=== PATIENT | male | born 1940 | race Caucasian/White ===

== ENCOUNTER 2017-07-21 11:06 | Day surgery (SDC) | payer MEDICARE, SELFPAY | END 2017-07-21 17:20 | disposition home or self-care (01) | PROVIDERS: Family Provider Internal Medicine Adolescent Medicine; Visit Provider Orthopaedic Surgery | DX: S82.855A Nondisplaced trimalleolar fracture of left lower leg, initial encounter for closed fracture (principal); W19.XXXA Unspecified fall, initial encounter; E11.9 Type 2 diabetes mellitus without complications; N39.0 Urinary tract infection, site not specified | CPT/HCPCS: 27822; 73600; 73610; 76001; 81001; 82962; 87086; C1713; C1776; J0330; J2405 ==

== ENCOUNTER → 2017-08-04 | Outpatient (CLI) | payer MEDICARE, SELFPAY | PROVIDERS: Family Provider Nurse Practitioner Family; Visit Provider Orthopaedic Surgery | DX: Z09 Encounter for follow-up examination after completed treatment for conditions other than malignant neoplasm (principal); S82.62XA Displaced fracture of lateral malleolus of left fibula, initial encounter for closed fracture | CPT/HCPCS: 73610 ==

== ENCOUNTER → 2017-09-04 12:48 | Outpatient (CLI) | payer MEDICARE, SELFPAY ==
--- NOTE | 2017-09-04 12:55 | XR_ITS ---
XR ankle LT min 3V Ordering Physician: Valentin Kulkarni MD Patient Age: 76 years: Male HISTORY: ITS.REASON: postoperative ORIF left ankle; dos 07/21/17 TECHNIQUE: 3 view left ankle COMPARISON :Previous left ankle 08/04/2017 FINDINGS: Status post ORIF distal fibular and medial malleolus fracture as previously described. There remains good alignment of the fracture fragments. Progressive healing.. The oblique view shows at fixation one of the fixation screws securing the medial malleolus passes through the lateral cortex of the tibia associated with some dystrophic calcification towards interosseous region between tibia and fibula . Ankle mortise appears intact and does not appear widened. Cast is been removed with today's study.. . Upper normal density at the dome of talus noted. IMPRESSION: Good alignment status post ORIF left ankle fracture Report
== END ==
PROVIDERS: PCP Internal Medicine Adolescent Medicine; Visit Provider Orthopaedic Surgery
DX: Z48.89 Encounter for other specified surgical aftercare (principal); S82.852D Displaced trimalleolar fracture of left lower leg, subsequent encounter for closed fracture with routine healing
CPT/HCPCS: 73610

== ENCOUNTER → 2018-03-08 16:02 | Outpatient (CLI) | payer MEDICARE, SELFPAY | PROVIDERS: PCP Internal Medicine Adolescent Medicine; Visit Provider Nurse Practitioner Family | DX: R00.1 Bradycardia, unspecified (principal) | CPT/HCPCS: 93225; 93226 ==

== ENCOUNTER 2020-11-20 09:22 | Emergency (ER) | payer MEDICARE, SELFPAY ==
[2020-11-20] VITALS (12 sets, daily range): BP systolic 189–223; BP diastolic 104–118; PULSE 97–105; RESP 18–41; TEMP 36.7; O2SAT 71–100; BMI 26.6
--- NOTE | 2020-11-20 09:23 | HMH.EDSOB ---
ED Disposition Clinical Impression: Hypertensive urgency, Shock liver, Hyperkalemia Sepsis Qualifiers: Severe sepsis acute organ dysfunction type: acute renal failure Acute renal failure type: unspecified Severe sepsis shock status: without septic shock Acute renal failure Qualifiers: Acute renal failure type: unspecified Qualified Code(s): N17.9 - Acute kidney failure, unspecified Respiratory failure Qualifiers: Chronicity: acute Respiratory failure complication: hypoxia Qualified Code(s): J96.01 - Acute respiratory failure with hypoxia Heart failure Qualifiers: Heart failure type: unspecified Heart failure chronicity: acute Qualified Code(s): I50.9 - Heart failure, unspecified Clinical Impression: (Ruled Out): Acute respiratory disease Disposition: Xfer Short-Term Hosp Condition on Discharge: Serious Instructions: DI for Altered Mental Status Time of Disposition: 11:56 - Critical Care Critical Care Time: Yes Attestation: On , the high probability of a clinically significant, sudden or life threatening deterioration of the following system(s) required my full and direct attention, intervention and personal management. The time I documented below is in addition to time spent performing reported procedures but includes the following listed in this critical care notation. Total Critical Care Time: 45 Vital system(s) involved:: Metabolic Failure, Respiratory Failure, Renal Failure My critical care processes included: Assessment & monitoring of V/S, Initial and Re-exams, Data Review/Interpretation, Coordinating Care, Medication Orders and management Medical Decision Making - Medical Records Medical records reviewed: Yes: I reviewed the patient's medical records. - Bahman Inquiry Pt receiving controlled substance: No Vital Signs: 11/20/20 09:22 11/20/20 09:45 11/20/20 09:46 Temperature 98.0 F Temperature Source Rectal Pulse Rate 98 H 98 H Pulse Rate [Left Radial] 97 H Respiratory Rate 41 H 30 H 34 H Blood Pressure 202/107 H 198/104 H Blood Pressure [Right Arm] 189/114 H Blood Pressure Mean [Right Arm] 139 Blood Pressure Source Blood Pressure Source [Right Arm] Automatic Cuff Blood Pressure Position Blood Pressure Position [Right Arm] Sitting 02 Sat by Pulse Oximetry 71 L 100 100 Oxygen Delivery Method Room Air Nasal Cannula BiPAP Oxygen Flow Rate (LPM) 4 30 11/20/20 10:00 11/20/20 10:17 11/20/20 10:23 Temperature Temperature Source Pulse Rate 99 H 105 H 99 H Pulse Rate [Left Radial] Respiratory Rate 33 H 35 H Blood Pressure 212/110 H 212/118 H 212/110 H Blood Pressure [Right Arm] Blood Pressure Mean [Right Arm] Blood Pressure Source Automatic Cuff Blood Pressure Source [Right Arm] Blood Pressure Position Sitting Blood Pressure Position [Right Arm] 02 Sat by Pulse Oximetry 100 100 100 Oxygen Delivery Method BiPAP Oxygen Flow Rate (LPM) 30 11/20/20 10:47 Temperature Temperature Source Pulse Rate 100 H Pulse Rate [Left Radial] Respiratory Rate 28 H Blood Pressure 223/115 H Blood Pressure [Right Arm] Blood Pressure Mean [Right Arm] Blood Pressure Source Blood Pressure Source [Right Arm] Blood Pressure Position Blood Pressure Position [Right Arm] 02 Sat by Pulse Oximetry 100 Oxygen Delivery Method BiPAP Oxygen Flow Rate (LPM) 30 - Lab Data Lab Results 11/20/20 09:15: WBC 11.0 H, RBC 4.44 L, Hgb 13.2 L, Hct 43.2, MCV 97.3 H, MCH 29.7, MCHC 30.5 L, RDW 14.8, Plt Count 247, MPV 8.9, Neut % (Auto) 87.8 H, Lymph % (Auto) 7.4 L, [place] % (Auto) 4.4, Eos % (Auto) 0.1, Baso % (Auto) 0.4, Neut # (Auto) 9.6 H, Lymph # (Auto) 0.8, [place] # (Auto) 0.5, Eos # (Auto) 0.0, Baso # (Auto) 0.0, Total Counted 100, Neutrophils % (Manual) 90 H, Lymphocytes % (Manual) 9 L, Monocytes % (Manual) 1 L, Platelet Estimate Normal, RBC Morphology Normal 11/20/20 09:15: PT 16.2 H, INR 1.41 H, APTT 28.2 11/20/20 09:15: Sodium 140, Potassium 6.6 H*, Chloride
--- NOTE | 2020-11-20 09:30 | XR_ITS ---
PROCEDURE: XR CHEST PORTABLE CLINICAL HISTORY: hypoxia COMPARISON: CR CXR CHEST(2 VIEWS-NOT PORTABLE) from 07/18/2017 FINDINGS: This is a slightly poor inspiratory effort. There is mild generalized cardiomegaly with left ventricular prominence. Mild calcification of the aortic arch the lung briscoe are clear of infiltrate and there is no pleural fluid. No acute bony abnormalities. IMPRESSION: Mild generalized cardiomegaly, no acute cardiopulmonary disease seen Dictated by: Dr. Ren Langston MD 11/20/2020 10:29 Dr. Ren Langston MD in [facility] 11/20/2020 10:29
--- NOTE | 2020-11-20 09:45 | PC.NURSE ---
lab called to draw lactic and cultures
--- NOTE | 2020-11-20 09:45 | PC.NURSE ---
Lab and RT at bedside
[2020-11-20 09:53] LABS: Basophils % 0.4 % (0.1-2.0); Eosinophils % 0.1 % (0.1-12.0); Hematocrit 43.2 % (42.0-52.0); Hemoglobin 13.2 g/dL (14.1-18.0); Lymphocytes # 0.8 K/mm3 (0.7-4.5); Lymphocytes % 7.4 % (10-50); Mean Corpuscular HGB Conc 30.5 g/dL (31.8-35.4); Mean Corpuscular Hemoglobin 29.7 pg (27.0-31.2); Mean Corpuscular Volume 97.3 fl (80-94); Mean Platelet Volume 8.9 fl (7.4-10.4); Monocytes # 0.5 K/mm3 (0.1-1.0); Monocytes % 4.4 % (1.7-9.3); Neutrophils # 9.6 K/mm3 (1.8-7.8); Neutrophils % 87.8 % (37.0-80.0); Platelet Count 247 K/mm3 (142-424); Red Blood Count 4.44 M/mm3 (4.60-6.20); Red Cell Distribution Width 14.8 % (11.5-17.5)
[2020-11-20 09:54] LABS: Chloride 112 mmol/L (98-107); Sodium 140 mmol/L (136-145)
[2020-11-20 09:56] LABS: MANUAL DIFFERENTIAL MANUAL DIFFERENTIAL (MANUAL DIFF)
[2020-11-20 09:57] LABS: Albumin Level 3.9 g/dl (3.5-5.0); Albumin/Globulin Ratio 1.1 (1.1-1.8); Alkaline Phosphatase 108 U/L (38-126); Bilirubin,Total 2.3 mg/dl (0.2-1.3); Blood Urea Nitrogen 71 mg/dl (9-20); Estimated Glomerular Filt Rate 6 ml/min (>60); GFR (African American) 7 ML/MIN (>60); Globulin 3.4 g/dL (1.3-3.2); Total Protein,Serum 7.3 g/dl (6.3-8.2)
[2020-11-20 09:58] LABS: Calcium 9.4 mg/dl (8.4-10.2); Glucose 138 mg/dl (74-100)
[2020-11-20 09:59] LABS: Anion Gap 29.6 mEq/L (5-15)
[2020-11-20 10:02] LABS: Carbon Dioxide 5 mmol/L (22.0-30.0); Potassium 6.6 mmoL/L (3.5-5.1)
[2020-11-20 10:03] LABS: Activated Partial Thrombo Time 28.2 seconds (22.8-30.6); Alanine Aminotransferase 593 U/L (12-78); INR 1.41 (0.9-1.1); Prothrombin Time 16.2 seconds (10.1-12.5)
--- NOTE | 2020-11-20 10:03 | PC.NURSE ---
DR MATAMOROS NOTIFIED OF CRITICAL LABS
[2020-11-20 10:04] LABS: Aspartate Amino Transferase 587 U/L (17-59)
[2020-11-20 10:06] LABS: Lymphocytes % 9 % (10-50); Monocytes % 1 % (2-9); Neutrophils % 90 % (42-76); Platelet Estimate Normal; RBC Morphology Normal; Total Cells Counted 100
--- NOTE | 2020-11-20 10:06 | PC.NURSE ---
Pt clothing removed and bathed in bed. Clothing placed in trash due to the material disintegration while on pt with dried vomit. Pieces of couch cushion found t/o pt clothing and within body parts. Animal hair and body fluids cleaned from pt body with soap and water. Warm blanket placed on pt.
--- NOTE | 2020-11-20 10:13 | PC.NURSE ---
vijay trop called and notified
[2020-11-20 10:22] LABS: Adenovirus,PCR Not Detected (NotDetected); Bordetella Pertussis Not Detected (NotDetected); Chlamydophila Pneumoniae, PCR Not Detected (NotDetected); Coronavirus 19, PCR Not Detected (NotDetected); Coronavirus 229E Not Detected (NotDetected); Coronavirus NL63 Not Detected (NotDetected); Coronavirus OC43 Not Detected (NotDetected); Coronovirus HKU1,PCR Not Detected (NotDetected); Human Metapneumovirus Not Detected (NotDetected); Influenza A, PCR Not Detected (NotDetected); Influenza AH1, 2009 Not Detected (NotDetected); Influenza AH1, PCR Not Detected (NotDetected); Influenza AH3,PCR Not Detected (NotDetected); Influenza B, PCR Not Detected (NotDetected); Mycoplasma Pneumoniae, PCR Not Detected (NotDetected); Parainfluenza 1, PCR Not Detected (NotDetected); Parainfluenza 2, PCR Not Detected (NotDetected); Parainfluenza 3, PCR Not Detected (NotDetected); Parainfluenza 4, PCR Not Detected (NotDetected); Respiratory Syncytial Virus Not Detected (NotDetected); Rhinovirus/Enterovirus Not Detected (NotDetected)
--- NOTE | 2020-11-20 10:23 | ECG_ITS ---
APPROVED REPORT Exam: Resting ECG HR:100 bpm ECG Measurements Heart Rate 100 AXES IA 128 P -12 QRSd 176 QRS 10 QT 416 T 175 QTc 536 Conclusion Normal sinus rhythm Left bundle branch block Abnormal ECG Electronically signed by : Ralf Alfaro, 11/21/2020 08:41:27
[2020-11-20 10:42] LABS: NT Pro Brain Natriuretic Pep. 273000 pg/mL (0-450)
[2020-11-20 10:47] LABS: VBG Base Excess -27.7 mmol/L (-2.4-2.3); VBG HCO3 3.5 mmol/L (23-30); VBG Oxygen Saturation 98.7 % (50-70); VBG PO2 191.5 mmol/L (28-40); VBG Total CO2 3.9 mmol/L (23-27)
--- NOTE | 2020-11-20 10:48 | PC.NURSE ---
Koffi Dumont in ED at this time.
--- NOTE | 2020-11-20 10:51 | ECG_ITS ---
APPROVED REPORT Exam: Resting ECG HR:108 bpm ECG Measurements Heart Rate 108 AXES AR 136 P -2 QRSd 176 QRS 4 QT 420 T 151 QTc 562 Conclusion Sinus tachycardia Left bundle branch block Abnormal ECG Electronically signed by : Ralf Alfaro, 11/21/2020 08:41:24
[2020-11-20 10:56] LABS: VBG PCO2 14.3 mmol/L (35-51); VBG PH 7.01 mmol/L (7.31-7.41)
--- NOTE | 2020-11-20 10:59 | PC.NURSE ---
Calling [facility] at this time.
[2020-11-20 11:00] LABS: Lactic Acid 10.2 mmol/L (0.7-2.1)
--- NOTE | 2020-11-20 11:04 | PC.NURSE ---
Dr Lopez with [facility]'s to return call.
--- NOTE | 2020-11-20 11:13 | PC.NURSE ---
Dr Lopez returned call.
--- NOTE | 2020-11-20 11:15 | PC.NURSE ---
MD does not want pt to have fluids due to his fluid overload
--- NOTE | 2020-11-20 11:18 | PC.NURSE ---
Pt switched to vapotherm by rad. Pt is more alert and states he is feeling better at this time.
--- NOTE | 2020-11-20 11:27 | PC.NURSE ---
[facility] to call back with bed assignment .
--- NOTE | 2020-11-20 11:42 | PC.NURSE ---
[facility] accepted flight 12 min ETA
--- NOTE | 2020-11-20 11:51 | PC.NURSE ---
Report called to K[facility] at 9th floor
--- NOTE | 2020-11-20 12:07 | PC.NURSE ---
[facility] 210
[2020-11-20 14:42] LABS: Reflex Lactic No Lactic Reflex
== END 2020-11-20 12:43 | disposition short-term general hospital (02) ==
PROVIDERS: Emergency Provider Student in an Organized Health Care Education/Training Program; PCP Internal Medicine Adolescent Medicine
DX: K72.00 Acute and subacute hepatic failure without coma (principal); A41.9 Sepsis, unspecified organism; I16.0 Hypertensive urgency; J96.01 Acute respiratory failure with hypoxia; N17.9 Acute kidney failure, unspecified; I50.9 Heart failure, unspecified; E87.5 Hyperkalemia; E11.9 Type 2 diabetes mellitus without complications; Z20.822 Contact with and (suspected) exposure to COVID-19; Z79.899 Other long term (current) drug therapy
CPT/HCPCS: 36415; 71045; 80053; 82803; 83605; 83880; 84484; 85007; 85025; 85610; 85730; 86850; 87040; 87581; 87633; 87798; 93005; 96365; 96367; 96375; 99284; J2405